=== PATIENT | male | born 1965 | race Caucasian/White ===

== ENCOUNTER 2024-06-16 13:50 | Outpatient (OUT) | payer MEDICARE, SELFPAY ==
--- NOTE | 2024-06-16 | XR_ITS ---
The [address] [address] Patient Name: COLE MAHARAJ MRN: [id number] date: 1965 Sex: M Assigned Patient Location: Current Patient Location: Accession/Order Number: [id number] Exam Date: 06/16/2024 13:51 Report Date: 06/18/2024 06:37 At the request of: FRIDA CARVAJAL Procedure: XR knee LT 4V PROCEDURE: XR knee LT 4V HISTORY: LEFT KNEE PAIN COMPARISON: None. FINDINGS: BONES:Moderate-marked narrowing of the medial joint space with near [id number] articulation. Small degenerative osteophytes along the articular margins of all 3 compartments. SOFT TISSUES:No visible soft tissue swelling. EFFUSION:Small joint effusion. OTHER: Negative. XR/XR knee LT 4V IMPRESSION: 1. Moderate, bordering on marked degenerative joint disease predominantly due to narrowing of the medial compartment. Electronically authenticated by: PETE GARNETT Date: 06/18/2024 06:37
== END 2024-06-16 13:51 | disposition home or self-care (01) ==
LOC: EC 13:50
PROVIDERS: Visit Provider Student in an Organized Health Care Education/Training Program
DX: M25.562 Pain in left knee (principal); M17.9 Osteoarthritis of knee, unspecified
CPT/HCPCS: 73564